=== PATIENT | female | born 1935 | race Caucasian/White ===

== ENCOUNTER 2023-10-01 15:00 | Outpatient (OUT) | payer MEDICARE, SELFPAY ==
[2023-10-01] MEDS: COVID VAC 23-24(12UP)MODERNA/PF 50 MCG/0.5 ML VIAL IM (15:00)
== END 2023-10-01 15:01 | disposition home or self-care (01) ==
LOC: VACCLI 10-28 16:08
PROVIDERS: PCP Family Medicine
DX: Z23 Encounter for immunization (principal)
CPT/HCPCS: 90480; 91322